=== PATIENT | male | born 1975 | race Asian ===

== ENCOUNTER 2016-10-01 12:14 | Emergency (ER) | payer OTHER ==
[2016-10-01 12:28] VITALS: BP 160/101; PULSE 100; TEMP 97.4; BMI 40.6
[2016-10-01] MEDS ORDERED: KETOROLAC TROMETHAMINE 60 MG/2 ML VIAL IM ONE (13:25)
[2016-10-01] MEDS ORDERED: traMADol HCL 50 MG TABLET PO ONE (13:25)
[2016-10-01] MEDS ORDERED: KETOROLAC TROMETHAMINE 60 MG/2 ML VIAL ONE (13:26)
[2016-10-01] MEDS ORDERED: traMADol HCL 50 MG TABLET ONE (13:27)
--- NOTE | 2016-10-01 13:31 | PDOC ---
History of Present Illness - General Chief Complaint: Back Pain Stated Complaint: BACK PAIN Time Seen by Provider: 10/01/16 12:49 History Source: Patient - History of Present Illness Occurred: reports: yesterday Severity: reports: severe Pain Location: reports: back Method of Injury: Yes: other (heavy lifting) Past History - Past Medical History Allergies/Adverse Reactions: Allergies Allergy/AdvReac Type Severity Reaction Status Date / Time No Known Allergies Allergy Verified 10/01/16 12:24 Home Medications: Ambulatory Orders Cyclobenzaprine HCl [Flexeril -] 10 mg PO HS #7 tablet 10/05/15 Cyclobenzaprine HCl [Flexeril -] 10 mg PO TID 10/05/15 Gabapentin 800 mg PO ASDIR 10/05/15 Ibuprofen 800 mg PO TID PRN #21 tablet 10/05/15 Metoprolol Succinate [Toprol Xl] 50 mg PO ASDIR 10/05/15 Tramadol HCl 50 mg PO Q6H #20 tablet MDD 200 mg 10/01/16 Diabetes: Yes - Psycho/Social/Smoking Cessation Hx Suicidal Ideation: No Smoking History: Never smoked Trauma Specific PMHX - Complaint Specific PMHX Arthritis: No Back Injury: No Neck Injury: No Hx Sacro Iliac Joint Dysfunction: No Review of Systems - Review of Systems Constitutional: No: Chills, Fever ABD/GI: No: Nausea, Vomiting, Abdominal cramping Musculoskeletal: Yes: Back Pain. No: Neck Pain Neurological: No: Numbness, Tingling, Weakness *Physical Exam - Vital Signs Last Vital Signs Temp Pulse Resp BP Pulse Ox 97.4 F L 100 H 19 160/101 95 10/01/16 12:24 10/01/16 12:24 10/01/16 12:24 10/01/16 12:24 10/01/16 12:24 - Physical Exam General Appearance: Yes: Appropriately Dressed, Moderate Distress HEENT: positive: Normal Voice Neck: positive: Supple Respiratory/Chest: negative: Respiratory Distress Gastrointestinal/Abdominal: positive: Soft. negative: Tender Musculoskeletal: positive: Vertebral Tenderness (to mid LS spine). negative: CVA Tenderness Integumentary: positive: Dry, Warm Neurologic: positive: Fully Oriented, Alert, Normal Mood/Affect Medical Decision Making - Medical Decision Making 10/01/16 13:26 41 yo male, obesity, DM, chronic LBP, f/u with a specialist w/ MRI in the past but does not remember results, take motrin as needed, p/w severe mid lower back pain that started yesterday after lifting a heavy box. States pain not improved w/ motrin. No radiation of pain, LE weakness, b/b incontinent or saddle anesthesia. See exam Acute on chronic LBP No red flags at this time. i./e cauda equina -pain control in ED and reassess 10/01/16 14:26 10/01/16 14:26 Pt reports sig improvement in pain. Will dc w/ rx and encourage pmd f/u *DC/Admit/Observation/Transfer Diagnosis at time of Disposition: Back pain Qualifiers: Back pain location: low back pain Chronicity: acute Back pain laterality: midline Sciatica presence: without sciatica Qualified Code(s): M54.5 - Low back pain - Discharge Dispostion Disposition: HOME Condition at time of disposition: Improved - Prescriptions Prescriptions: Tramadol HCl 50 mg PO Q6H #20 tablet MDD 200 mg - Patient Instructions Printed Discharge Instructions: Low Back Pain Additional Instructions: Take tramadol as needed for pain and follow up with your doctor
== END 2016-10-01 14:45 | disposition home or self-care (01) ==
LOC: JERFT 12:14
PROC: 3E0233Z Introduction of Anti-inflammatory into Muscle, Percutaneous Approach (ICD-10-PCS; principal; 2016-10-01)
DX: M54.5 Low back pain (principal); G89.29 Other chronic pain; E11.9 Type 2 diabetes mellitus without complications; E66.09 Other obesity due to excess calories; Z68.41 Body mass index [BMI] 40.0-44.9, adult
CPT/HCPCS: 99281-25

== ENCOUNTER 2017-07-27 09:34 | Day surgery (SDC) | payer OTHER ==
[2017-07-26 14:41] VITALS: BMI 41.9
[2017-07-27 10:59] VITALS: TEMP 97.5
[2017-07-27 14:45] VITALS: BP 135/84; PULSE 87
--- NOTE | 2017-07-29 15:44 | PATH ---
Surgical Pathology Report Patient Name: JANE QUINTANILLA [facility]. Rec. #: [id number] /Age/Gender: 1975 (Age: 42) / M Account: [id number] Location: [facility]-ENDOSCOPY Taken: 07/27/2017 Received: 07/27/2017 Reported: 07/29/2017 Physicians: Gio Jacques M.D. Specimen(s) Received BX ANTRUM Clinical History Abdominal pain Final Diagnosis ANTRUM, BIOPSY: MODERATE CHRONIC ACTIVE GASTRITIS. IMMUNOSTAIN SHOWS NUMEROUS H. PYLORI ORGANISMS. Electronically Signed Nell Brown M.D. Gross Description Received in formalin, labeled "biopsy antrum" are 2 dong, irregular portions of soft tissue measuring 0.3 and 0.6 cm. in greatest dimension. The specimens are submitted in toto in one cassette. /07/27/201707/27/2017
== END 2017-07-27 11:35 | disposition home or self-care (01) ==
LOC: JASU-ENDO 09:34
PROVIDERS: ATTEND Internal Medicine Gastroenterology
PROC: 0DB68ZX Excision of Stomach, Via Natural or Artificial Opening Endoscopic, Diagnostic (ICD-10-PCS; principal; 2017-07-27 11:00)
DX: K29.50 Unspecified chronic gastritis without bleeding (principal); K21.9 Gastro-esophageal reflux disease without esophagitis; I10 Essential (primary) hypertension; E11.9 Type 2 diabetes mellitus without complications; E66.9 Obesity, unspecified; Z68.41 Body mass index [BMI] 40.0-44.9, adult
CPT/HCPCS: 88305-TC; 88342-TC

== ENCOUNTER 2020-02-08 13:59 | Inpatient (IN) | payer OTHER ==
[2020-02-08] MEDS ORDERED: DEXAMETHASONE SOD PHOSPHATE 20 MG/5 ML VIAL IVPB STA (15:07)
[2020-02-08] MEDS ORDERED: LACTATED RINGERS SOLUTION 1000 ML INFUS.BAG IV STA (15:08)
[2020-02-08] MEDS ORDERED: DEXAMETHASONE SOD PHOSPHATE 10 MG/1 ML VIAL ONE (15:14)
[2020-02-08] MEDS ORDERED: LACTATED RINGERS SOLUTION 1,000 ML/1,000 ML INFUS.BAG IV SCH (15:15)
[2020-02-08 16:09] LABS: BASO % 0.3 % (0-2.0); EOS % 0.2 % (0-4.5); HEMATOCRIT 41.3 % (35.4-49); HEMOGLOBIN 13.8 GM/dL (11.7-16.9); LYMPH % 9.9 % (8-40); MCH 28.8 pg (25.7-33.7); MCHC 33.4 g/dl (32.0-35.9); MEAN CELL VOLUME 86.2 fl (80-96); MEAN PLT VOLUME 9.8 fl (7.5-11.1); MONO % 2.1 % (3.8-10.2); NEUT % 87.5 % (42.8-82.8); PLATELET COUNT 225 K/MM3 (134-434); RBC 4.79 M/mm3 (4.00-5.60); RDW 14.2 % (11.9-15.9)
[2020-02-08 16:22] LABS: CHLORIDE 106 mmol/L (98-107); SODIUM 138 mmol/L (136-145)
[2020-02-08 16:24] LABS: ALBUMIN 3.3 g/dl (3.4-5.0); ANION GAP 8 MMOL/L (8-16); BLOOD UREA NITROGEN 13.7 mg/dL (7-18); CALCIUM 8.4 mg/dL (8.5-10.1); CO2 24 mmol/L (21-32)
[2020-02-08 16:25] LABS: GLUCOSE,RANDOM 187 mg/dL (74-106)
[2020-02-08 16:27] LABS: SGOT/AST 42 U/L (15-37); SGPT/ALT 34 U/L (13-61)
[2020-02-08 16:29] LABS: BILIRUBIN,TOTAL 0.4 mg/dL (0.2-1); TOT PROT 6.5 g/dl (6.4-8.2)
[2020-02-08 16:30] LABS: ALK PHOS 71 U/L (45-117)
[2020-02-08 17:02] LABS: LDH 723 U/L (87-246)
[2020-02-08] MEDS ORDERED: ALBUTEROL SO4 HFA INHALER IH PRN (17:06)
[2020-02-08] MEDS ORDERED: CEFTRIAXONE 1 GM/50 ML BAG ONE (17:21)
[2020-02-08] MEDS: CEFTRIAXONE 1 GM in DEXTROSE 5%-WATER - 50 ML IVPB SCH (17:26)
[2020-02-08 18:31] LABS: URINE APPEARANCE CLEAR; URINE BILIRUBIN NEGATIVE (NEGATIVE); URINE COLOR YELLOW; URINE GLUCOSE (UA) NEGATIVE (NEGATIVE); URINE KETONE NEGATIVE (NEGATIVE); URINE LEUK ESTERASE NEGATIVE (NEGATIVE); URINE NITRITE NEGATIVE (NEGATIVE); URINE PROTEIN TRACE (NEGATIVE)
[2020-02-08 21:13] LABS: ARTERIAL BLD GAS O2 SATURATION 92.3 mmHg (95-98); ARTERIAL BLOOD GAS BASE EXCESS -0.2 mmol/L (-2-2); ARTERIAL BLOOD GAS PO2 62.4 mmHg (80-100); ARTERIAL BLOOD GAS pH 7.414 (7.350-7.450)
[2020-02-08 21:28] LABS: ALLENS TEST POSITIVE
[2020-02-08] MEDS ORDERED: methylPREDNISolone NA SUCC 40 MG/1 ML VIAL IVPUSH SCH (22:00)
[2020-02-08] MEDS ORDERED: ASCORBIC ACID 500 MG TABLET (FP) ONE (22:50)
[2020-02-08] MEDS: ASCORBIC ACID 500 MG TABLET (FP) PO SCH (22:55)
[2020-02-08] MEDS: INSULIN SLIDING SCALE (NOVOLOG) 1 VIAL SQ SCH (23:10)
[2020-02-09 07:14] LABS: POTASSIUM 4.1 mmol/L (3.5-5.1)
[2020-02-09 07:18] LABS: INR 1.26 (0.83-1.09); PROTHROMBIN TIME (PATIENT) 15.2 SEC (9.7-13.0)
[2020-02-09 07:18] LABS: BASO % 0.1 % (0-2.0); BLOOD UREA NITROGEN 17.2 mg/dL (7-18); CALCIUM 8.5 mg/dL (8.5-10.1); HEMATOCRIT 38.7 % (35.4-49); HEMOGLOBIN 13.2 GM/dL (11.7-16.9); MAGNESIUM 1.9 mg/dL (1.8-2.4); MCH 28.6 pg (25.7-33.7); MEAN CELL VOLUME 84.2 fl (80-96); MEAN PLT VOLUME 9.2 fl (7.5-11.1); MONO % 3.9 % (3.8-10.2); PLATELET COUNT 235 K/MM3 (134-434); RDW 14.4 % (11.9-15.9); WHITE BLOOD COUNT 10.7 K/mm3 (4.0-10.0)
[2020-02-09 07:21] LABS: ACTIVATED PTT 29.4 SECONDS (25.2-36.5)
[2020-02-09 07:21] LABS: CREATININE 0.9 mg/dL (0.55-1.3)
[2020-02-09 07:22] LABS: PHOSPHOROUS 3.6 mg/dL (2.5-4.9)
[2020-02-09 07:23] LABS: TOT PROT 6.3 g/dl (6.4-8.2)
[2020-02-09 07:25] LABS: BILIRUBIN,TOTAL 0.8 mg/dL (0.2-1)
[2020-02-09] MEDS: INSULIN SLIDING SCALE (NOVOLOG) 1 VIAL SQ SCH ×4 (08:28→23:06)
[2020-02-09] MEDS ORDERED: AZITHROMYCIN IVPB 250 MG in DEXTROSE 5%-WATER - 250 ML IVPB SCH (10:00)
[2020-02-09] MEDS ORDERED: ENOXAPARIN NA (PORCINE) 40 MG/0.4 ML DISP.SYRIN SQ SCH (10:00)
[2020-02-09] MEDS ORDERED: ASCORBIC ACID 500 MG TABLET (FP) ONE (10:11)
[2020-02-09] MEDS ORDERED: CEFTRIAXONE 1 GM/50 ML BAG ONE (10:11)
[2020-02-09] MEDS ORDERED: ZINC SULFATE 220 MG CAPSULE (FP) ONE (10:11)
[2020-02-09] MEDS ORDERED: ENOXAPARIN NA (PORCINE) 40 MG/0.4 ML DISP.SYRIN SQ ONE (10:11)
[2020-02-09] MEDS ORDERED: DEXAMETHASONE SOD PHOSPHATE 10 MG/1 ML VIAL ONE (10:11)
[2020-02-09] MEDS: DEXAMETHASONE SOD PHOSPHATE 10 MG/1 ML VIAL IVPB SCH (10:48)
[2020-02-09] MEDS: CEFTRIAXONE 1 GM in DEXTROSE 5%-WATER - 50 ML IVPB SCH (10:49)
[2020-02-09] MEDS: ZINC SULFATE 220 MG CAPSULE (FP) PO SCH (10:49)
[2020-02-09] MEDS: ASCORBIC ACID 500 MG TABLET (FP) PO SCH ×2 (10:49→23:07)
[2020-02-09] MEDS ORDERED: MUPIROCIN 2% TOPICAL OINTMENT FOR DECOLONIZATION NS SCH (11:15)
[2020-02-09] MEDS ORDERED: CEFEPIME 1 GM in DEXTROSE 5%-WATER 100 ML IVPB SCH (12:45)
[2020-02-09] MEDS ORDERED: LISINOPRIL 5 MG TABLET ONE (12:56)
[2020-02-09] MEDS: LISINOPRIL 5 MG TABLET PO SCH (13:27)
[2020-02-09] MEDS ORDERED: CEFEPIME HCL 1 GM VIAL (RESTRICTED TO ID) ONE (17:48)
[2020-02-09] MEDS ORDERED: DEXTROSE 5%-WATER 100 ML IVPB ONE (17:48)
[2020-02-09] MEDS: CEFEPIME 1 GM in DEXTROSE 5%-WATER 100 ML IVPB SCH (18:06)
[2020-02-09] MEDS ORDERED: PT OWN MED DRAWER 7, Y5N ONE (18:36)
[2020-02-09] MEDS ORDERED: REMDESIVIR 200 MG in SODIUM CHLORIDE 210 ML IVPB ONE (20:00)
[2020-02-09] MEDS ORDERED: CHLORHEXIDINE GLUCONATE 4% CLEANSER FOR DECOLONIZATION TP SCH (22:00)
[2020-02-09] MEDS: MUPIROCIN 2% TOPICAL OINTMENT FOR DECOLONIZATION NS SCH (23:04)
[2020-02-09] MEDS: CHLORHEXIDINE GLUCONATE 4% CLEANSER FOR DECOLONIZATION TP SCH (23:05)
[2020-02-09] MEDS: ENOXAPARIN NA (PORCINE) 120 MG/0.8 ML DISP.SYRIN SQ SCH (23:05)
[2020-02-09] MEDS: FAMOTIDINE 20 MG TABLET PO SCH (23:07)
[2020-02-10] MEDS: CEFEPIME 1 GM in DEXTROSE 5%-WATER 100 ML IVPB SCH ×3 (02:00→17:50)
[2020-02-10] MEDS ORDERED: DEXTROSE 5%-WATER 100 ML IVPB ONE ×3 (02:06→17:20)
[2020-02-10] MEDS ORDERED: CEFEPIME HCL 1 GM VIAL (RESTRICTED TO ID) ONE ×3 (02:06→17:20)
[2020-02-10] MEDS: INSULIN SLIDING SCALE (NOVOLOG) 1 VIAL SQ SCH ×4 (06:37→22:00)
[2020-02-10 07:07] LABS: POTASSIUM 4.1 mmol/L (3.5-5.1)
[2020-02-10 07:10] LABS: BASO % 0.2 % (0-2.0); HEMATOCRIT 38.5 % (35.4-49); LYMPH % 8.1 % (8-40); MCH 28.7 pg (25.7-33.7); MCHC 33.9 g/dl (32.0-35.9); MEAN CELL VOLUME 84.6 fl (80-96); MEAN PLT VOLUME 9.1 fl (7.5-11.1); NEUT % 85.7 % (42.8-82.8); PLATELET COUNT 289 K/MM3 (134-434); RBC 4.54 M/mm3 (4.00-5.60); RDW 14.4 % (11.9-15.9); WHITE BLOOD COUNT 15.1 K/mm3 (4.0-10.0)
[2020-02-10 07:11] LABS: CALCIUM 7.9 mg/dL (8.5-10.1)
[2020-02-10 07:12] LABS: ALBUMIN 2.8 g/dl (3.4-5.0); BLOOD UREA NITROGEN 23.8 mg/dL (7-18); MAGNESIUM 2.2 mg/dL (1.8-2.4)
[2020-02-10 07:15] LABS: CREATININE 0.9 mg/dL (0.55-1.3); PHOSPHOROUS 3.8 mg/dL (2.5-4.9)
[2020-02-10 07:16] LABS: BILIRUBIN,TOTAL 0.6 mg/dL (0.2-1); TOT PROT 6.2 g/dl (6.4-8.2)
[2020-02-10] MEDS: ENOXAPARIN NA (PORCINE) 120 MG/0.8 ML DISP.SYRIN SQ SCH ×2 (10:11→22:00)
[2020-02-10] MEDS: DEXAMETHASONE SOD PHOSPHATE 10 MG/1 ML VIAL IVPB SCH (10:11)
[2020-02-10] MEDS: ZINC SULFATE 220 MG CAPSULE (FP) PO SCH (10:12)
[2020-02-10] MEDS: ASCORBIC ACID 500 MG TABLET (FP) PO SCH ×2 (10:12→22:00)
[2020-02-10] MEDS: LISINOPRIL 5 MG TABLET PO SCH (10:13)
[2020-02-10] MEDS: FAMOTIDINE 20 MG TABLET PO SCH ×2 (10:13→22:00)
[2020-02-10] MEDS ORDERED: PT OWN MED DRAWER 7, Y5N ONE ×2 (10:45→19:54)
[2020-02-10] MEDS: MUPIROCIN 2% TOPICAL OINTMENT FOR DECOLONIZATION NS SCH ×2 (12:57→22:44)
[2020-02-10] MEDS: REMDESIVIR 100 MG in SODIUM CHLORIDE 230 ML IVPB SCH (20:22)
[2020-02-10] MEDS: CHLORHEXIDINE GLUCONATE 4% CLEANSER FOR DECOLONIZATION TP SCH (22:45)
[2020-02-11] VITALS: BMI 45.4
[2020-02-11] MEDS: CEFEPIME 1 GM in DEXTROSE 5%-WATER 100 ML IVPB SCH ×3 (02:00→18:20)
[2020-02-11] MEDS ORDERED: CEFEPIME HCL 1 GM VIAL (RESTRICTED TO ID) ONE ×3 (02:13→16:32)
[2020-02-11] MEDS ORDERED: DEXTROSE 5%-WATER 100 ML IVPB ONE ×3 (02:13→16:32)
[2020-02-11] MEDS: INSULIN SLIDING SCALE (NOVOLOG) 1 VIAL SQ SCH ×4 (07:04→22:30)
[2020-02-11 07:20] LABS: HEMATOCRIT 39.7 % (35.4-49); HEMOGLOBIN 13.3 GM/dL (11.7-16.9); LYMPH % 11.3 % (8-40); MCH 28.7 pg (25.7-33.7); MCHC 33.6 g/dl (32.0-35.9); MEAN CELL VOLUME 85.5 fl (80-96); MONO % 6.8 % (3.8-10.2); NEUT % 81.9 % (42.8-82.8); PLATELET COUNT 329 K/MM3 (134-434); RBC 4.65 M/mm3 (4.00-5.60); RDW 14.6 % (11.9-15.9)
[2020-02-11 07:59] LABS: POTASSIUM 4.2 mmol/L (3.5-5.1)
[2020-02-11 08:09] LABS: BILIRUBIN,TOTAL 0.4 mg/dL (0.2-1); TOT PROT 6.2 g/dl (6.4-8.2)
[2020-02-11 08:11] LABS: ALBUMIN 2.9 g/dl (3.4-5.0); BLOOD UREA NITROGEN 29.1 mg/dL (7-18); CALCIUM 7.9 mg/dL (8.5-10.1)
[2020-02-11 08:12] LABS: MAGNESIUM 2.5 mg/dL (1.8-2.4)
[2020-02-11 08:14] LABS: CREATININE 0.9 mg/dL (0.55-1.3); PHOSPHOROUS 3.3 mg/dL (2.5-4.9)
[2020-02-11] MEDS: ENOXAPARIN NA (PORCINE) 120 MG/0.8 ML DISP.SYRIN SQ SCH ×2 (10:13→22:30)
[2020-02-11 10:16] LABS: ANISOCYTOSIS 1+; MACROCYTOSIS 1+; PLATELET ESTIMATE NORMAL
[2020-02-11] MEDS: DEXAMETHASONE SOD PHOSPHATE 10 MG/1 ML VIAL IVPB SCH (10:19)
[2020-02-11] MEDS: MUPIROCIN 2% TOPICAL OINTMENT FOR DECOLONIZATION NS SCH ×2 (10:20→22:29)
[2020-02-11] MEDS: ZINC SULFATE 220 MG CAPSULE (FP) PO SCH (10:20)
[2020-02-11] MEDS: FAMOTIDINE 20 MG TABLET PO SCH ×2 (10:20→22:30)
[2020-02-11] MEDS: LISINOPRIL 5 MG TABLET PO SCH (10:20)
[2020-02-11] MEDS: ASCORBIC ACID 500 MG TABLET (FP) PO SCH ×2 (10:21→22:30)
[2020-02-11] MEDS: REMDESIVIR 100 MG in SODIUM CHLORIDE 230 ML IVPB SCH (20:00)
[2020-02-11] MEDS: CHLORHEXIDINE GLUCONATE 4% CLEANSER FOR DECOLONIZATION TP SCH (22:29)
[2020-02-12] MEDS ORDERED: DEXTROSE 5%-WATER 100 ML IVPB ONE ×3 (01:47→17:43)
[2020-02-12] MEDS ORDERED: CEFEPIME HCL 1 GM VIAL (RESTRICTED TO ID) ONE ×3 (01:47→17:43)
[2020-02-12] MEDS: CEFEPIME 1 GM in DEXTROSE 5%-WATER 100 ML IVPB SCH ×3 (02:00→17:44)
[2020-02-12] MEDS: INSULIN SLIDING SCALE (NOVOLOG) 1 VIAL SQ SCH ×4 (07:08→21:43)
[2020-02-12 07:38] LABS: BASO % 0.4 % (0-2.0); EOS % 0.3 % (0-4.5); HEMATOCRIT 40.6 % (35.4-49); HEMOGLOBIN 13.7 GM/dL (11.7-16.9); LYMPH % 12.8 % (8-40); MCH 28.7 pg (25.7-33.7); MCHC 33.7 g/dl (32.0-35.9); MEAN CELL VOLUME 85.1 fl (80-96); MONO % 4.1 % (3.8-10.2); NEUT % 82.4 % (42.8-82.8); PLATELET COUNT 343 K/MM3 (134-434); RBC 4.77 M/mm3 (4.00-5.60); RDW 14.1 % (11.9-15.9); WHITE BLOOD COUNT 15.9 K/mm3 (4.0-10.0)
[2020-02-12 08:06] LABS: CALCIUM 7.4 mg/dL (8.5-10.1)
[2020-02-12 08:07] LABS: ALBUMIN 2.6 g/dl (3.4-5.0); MAGNESIUM 2.4 mg/dL (1.8-2.4)
[2020-02-12 08:08] LABS: BLOOD UREA NITROGEN 24.6 mg/dL (7-18)
[2020-02-12 08:10] LABS: CREATININE 0.8 mg/dL (0.55-1.3)
[2020-02-12 08:12] LABS: BILIRUBIN,TOTAL 0.5 mg/dL (0.2-1)
[2020-02-12] MEDS: DEXAMETHASONE SOD PHOSPHATE 10 MG/1 ML VIAL IVPB SCH (09:19)
[2020-02-12] MEDS: ZINC SULFATE 220 MG CAPSULE (FP) PO SCH (09:20)
[2020-02-12] MEDS: FAMOTIDINE 20 MG TABLET PO SCH ×2 (09:21→21:42)
[2020-02-12] MEDS: ASCORBIC ACID 500 MG TABLET (FP) PO SCH ×2 (09:21→21:42)
[2020-02-12] MEDS: LISINOPRIL 5 MG TABLET PO SCH (09:21)
[2020-02-12] MEDS: ENOXAPARIN NA (PORCINE) 120 MG/0.8 ML DISP.SYRIN SQ SCH (09:22)
[2020-02-12 11:49] LABS: ANISOCYTOSIS 0; MACROCYTOSIS 0; PLATELET ESTIMATE NORMAL
[2020-02-12] MEDS ORDERED: guaiFENesin 200 MG/10 ML 10 ML UNIT-DOSE CUPS PO PRN (11:57)
[2020-02-12] MEDS: MUPIROCIN 2% TOPICAL OINTMENT FOR DECOLONIZATION NS SCH (12:00)
[2020-02-12] MEDS: guaiFENesin 200 MG/10 ML 10 ML UNIT-DOSE CUPS PO SCH ×2 (15:52→23:54)
[2020-02-12] MEDS ORDERED: ALBUTEROL SO4 HFA INHALER IH PRN (19:11)
[2020-02-12] MEDS: REMDESIVIR 100 MG in SODIUM CHLORIDE 230 ML IVPB SCH (19:55)
[2020-02-12] MEDS: ENOXAPARIN NA (PORCINE) 60 MG/0.6 ML DISP.SYRIN SQ SCH (21:46)
[2020-02-13] MEDS ORDERED: DEXTROSE 5%-WATER 100 ML IVPB ONE ×3 (00:54→16:47)
[2020-02-13] MEDS ORDERED: CEFEPIME HCL 1 GM VIAL (RESTRICTED TO ID) ONE ×3 (00:54→16:47)
[2020-02-13] MEDS: CEFEPIME 1 GM in DEXTROSE 5%-WATER 100 ML IVPB SCH ×3 (01:16→17:21)
[2020-02-13] MEDS: guaiFENesin 200 MG/10 ML 10 ML UNIT-DOSE CUPS PO SCH ×3 (05:53→17:22)
[2020-02-13] MEDS: INSULIN SLIDING SCALE (NOVOLOG) 1 VIAL SQ SCH ×4 (06:24→22:14)
[2020-02-13 07:38] LABS: EOS % 1.2 % (0-4.5); HEMATOCRIT 40.2 % (35.4-49); HEMOGLOBIN 13.5 GM/dL (11.7-16.9); LYMPH % 14.8 % (8-40); MCH 28.6 pg (25.7-33.7); MCHC 33.6 g/dl (32.0-35.9); MEAN CELL VOLUME 85.3 fl (80-96); MEAN PLT VOLUME 8.6 fl (7.5-11.1); PLATELET COUNT 333 K/MM3 (134-434); RBC 4.72 M/mm3 (4.00-5.60); RDW 14.3 % (11.9-15.9); WHITE BLOOD COUNT 15.8 K/mm3 (4.0-10.0)
[2020-02-13 07:49] LABS: POTASSIUM 3.9 mmol/L (3.5-5.1)
[2020-02-13 08:02] LABS: ALBUMIN 2.6 g/dl (3.4-5.0); BLOOD UREA NITROGEN 22.7 mg/dL (7-18); CALCIUM 7.8 mg/dL (8.5-10.1)
[2020-02-13 08:03] LABS: MAGNESIUM 2.2 mg/dL (1.8-2.4)
[2020-02-13 08:05] LABS: CREATININE 0.9 mg/dL (0.55-1.3)
[2020-02-13 08:06] LABS: BILIRUBIN,TOTAL 0.6 mg/dL (0.2-1); PHOSPHOROUS 2.6 mg/dL (2.5-4.9); TOT PROT 5.9 g/dl (6.4-8.2)
[2020-02-13] MEDS: DEXAMETHASONE SOD PHOSPHATE 10 MG/1 ML VIAL IVPB SCH (10:31)
[2020-02-13] MEDS: ZINC SULFATE 220 MG CAPSULE (FP) PO SCH (10:37)
[2020-02-13] MEDS: ASCORBIC ACID 500 MG TABLET (FP) PO SCH ×2 (10:38→22:12)
[2020-02-13] MEDS: LISINOPRIL 5 MG TABLET PO SCH (10:38)
[2020-02-13] MEDS: FAMOTIDINE 20 MG TABLET PO SCH ×2 (10:38→22:13)
[2020-02-13 10:42] LABS: ANISOCYTOSIS 0; MACROCYTOSIS 0; OVALOCYTE 1+; PLATELET ESTIMATE NORMAL
[2020-02-13] MEDS: ENOXAPARIN NA (PORCINE) 60 MG/0.6 ML DISP.SYRIN SQ SCH ×2 (10:42→22:15)
[2020-02-13] MEDS ORDERED: INSULIN (NOVOLOG) ASPART 100 UNITS/ML 10ML VIAL ONE (11:32)
[2020-02-13] MEDS: REMDESIVIR 100 MG in SODIUM CHLORIDE 230 ML IVPB SCH (20:58)
[2020-02-14] MEDS ORDERED: CEFEPIME HCL 1 GM VIAL (RESTRICTED TO ID) ONE ×2 (00:32→09:14)
[2020-02-14] MEDS ORDERED: DEXTROSE 5%-WATER 100 ML IVPB ONE ×2 (00:33→09:14)
[2020-02-14] MEDS: guaiFENesin 200 MG/10 ML 10 ML UNIT-DOSE CUPS PO SCH ×4 (00:51→18:02)
[2020-02-14] MEDS: CEFEPIME 1 GM in DEXTROSE 5%-WATER 100 ML IVPB SCH ×2 (01:09→09:37)
[2020-02-14] MEDS: INSULIN SLIDING SCALE (NOVOLOG) 1 VIAL SQ SCH ×4 (06:07→22:31)
[2020-02-14 07:26] LABS: HEMATOCRIT 40.4 % (35.4-49); HEMOGLOBIN 13.7 GM/dL (11.7-16.9); MCH 29.2 pg (25.7-33.7); MCHC 33.9 g/dl (32.0-35.9); MEAN CELL VOLUME 86.2 fl (80-96); MEAN PLT VOLUME 8.7 fl (7.5-11.1); PLATELET COUNT 314 K/MM3 (134-434); RBC 4.68 M/mm3 (4.00-5.60); RDW 14.2 % (11.9-15.9); WHITE BLOOD COUNT 16.6 K/mm3 (4.0-10.0)
[2020-02-14 07:39] LABS: POTASSIUM 3.9 mmol/L (3.5-5.1)
[2020-02-14 07:49] LABS: ALBUMIN 2.6 g/dl (3.4-5.0); CALCIUM 7.7 mg/dL (8.5-10.1)
[2020-02-14 07:50] LABS: BLOOD UREA NITROGEN 19.8 mg/dL (7-18); MAGNESIUM 2.2 mg/dL (1.8-2.4)
[2020-02-14 07:53] LABS: BILIRUBIN,TOTAL 0.6 mg/dL (0.2-1); CREATININE 0.7 mg/dL (0.55-1.3); PHOSPHOROUS 2.8 mg/dL (2.5-4.9)
[2020-02-14 07:54] LABS: TOT PROT 5.8 g/dl (6.4-8.2)
[2020-02-14] MEDS: ASCORBIC ACID 500 MG TABLET (FP) PO SCH ×2 (09:39→22:24)
[2020-02-14] MEDS: LISINOPRIL 5 MG TABLET PO SCH (09:40)
[2020-02-14] MEDS: DEXAMETHASONE SOD PHOSPHATE 10 MG/1 ML VIAL IVPB SCH (09:40)
[2020-02-14] MEDS: ZINC SULFATE 220 MG CAPSULE (FP) PO SCH (09:40)
[2020-02-14] MEDS: FAMOTIDINE 20 MG TABLET PO SCH ×2 (09:41→22:24)
[2020-02-14] MEDS: ENOXAPARIN NA (PORCINE) 60 MG/0.6 ML DISP.SYRIN SQ SCH ×2 (11:42→22:24)
[2020-02-15] MEDS: guaiFENesin 200 MG/10 ML 10 ML UNIT-DOSE CUPS PO SCH ×4 (06:37→18:10)
[2020-02-15] MEDS: INSULIN SLIDING SCALE (NOVOLOG) 1 VIAL SQ SCH ×4 (06:38→22:10)
[2020-02-15 07:12] LABS: HEMATOCRIT 40.4 % (35.4-49); HEMOGLOBIN 13.2 GM/dL (11.7-16.9); MCH 28.1 pg (25.7-33.7); MCHC 32.8 g/dl (32.0-35.9); MEAN CELL VOLUME 85.7 fl (80-96); MEAN PLT VOLUME 9.2 fl (7.5-11.1); PLATELET COUNT 336 K/MM3 (134-434); RBC 4.71 M/mm3 (4.00-5.60); RDW 14.1 % (11.9-15.9); WHITE BLOOD COUNT 16.1 K/mm3 (4.0-10.0)
[2020-02-15 07:36] LABS: POTASSIUM 4.4 mmol/L (3.5-5.1)
[2020-02-15 08:07] LABS: BLOOD UREA NITROGEN 22.5 mg/dL (7-18); CALCIUM 7.9 mg/dL (8.5-10.1)
[2020-02-15 08:08] LABS: MAGNESIUM 2.2 mg/dL (1.8-2.4)
[2020-02-15 08:10] LABS: CREATININE 0.7 mg/dL (0.55-1.3); PHOSPHOROUS 3.1 mg/dL (2.5-4.9)
[2020-02-15] MEDS: DEXAMETHASONE SOD PHOSPHATE 10 MG/1 ML VIAL IVPB SCH (10:04)
[2020-02-15] MEDS: LISINOPRIL 5 MG TABLET PO SCH (10:04)
[2020-02-15] MEDS: ASCORBIC ACID 500 MG TABLET (FP) PO SCH ×2 (10:04→22:10)
[2020-02-15] MEDS: ENOXAPARIN NA (PORCINE) 60 MG/0.6 ML DISP.SYRIN SQ SCH ×2 (10:04→22:09)
[2020-02-15] MEDS: ZINC SULFATE 220 MG CAPSULE (FP) PO SCH (10:04)
[2020-02-15] MEDS: FAMOTIDINE 20 MG TABLET PO SCH ×2 (10:05→22:10)
[2020-02-16] MEDS: guaiFENesin 200 MG/10 ML 10 ML UNIT-DOSE CUPS PO SCH ×4 (02:44→17:02)
[2020-02-16] MEDS: INSULIN SLIDING SCALE (NOVOLOG) 1 VIAL SQ SCH ×4 (07:00→22:55)
[2020-02-16 07:54] LABS: POTASSIUM 4.1 mmol/L (3.5-5.1)
[2020-02-16 07:59] LABS: BLOOD UREA NITROGEN 22.3 mg/dL (7-18); CALCIUM 8.4 mg/dL (8.5-10.1); MAGNESIUM 2.1 mg/dL (1.8-2.4)
[2020-02-16 08:01] LABS: HEMOGLOBIN 13.2 GM/dL (11.7-16.9); MCH 28.1 pg (25.7-33.7); MCHC 32.9 g/dl (32.0-35.9); MEAN CELL VOLUME 85.3 fl (80-96); MEAN PLT VOLUME 9.2 fl (7.5-11.1); PLATELET COUNT 319 K/MM3 (134-434); RBC 4.69 M/mm3 (4.00-5.60); RDW 14.3 % (11.9-15.9); WHITE BLOOD COUNT 16.6 K/mm3 (4.0-10.0)
[2020-02-16 08:02] LABS: CREATININE 0.7 mg/dL (0.55-1.3); PHOSPHOROUS 3.6 mg/dL (2.5-4.9)
[2020-02-16] MEDS: FAMOTIDINE 20 MG TABLET PO SCH ×2 (10:23→22:56)
[2020-02-16] MEDS: DEXAMETHASONE SOD PHOSPHATE 10 MG/1 ML VIAL IVPB SCH (10:23)
[2020-02-16] MEDS: ZINC SULFATE 220 MG CAPSULE (FP) PO SCH (10:23)
[2020-02-16] MEDS: ENOXAPARIN NA (PORCINE) 120 MG/0.8 ML DISP.SYRIN SQ SCH ×2 (10:24→22:55)
[2020-02-16] MEDS: LISINOPRIL 5 MG TABLET PO SCH (10:24)
[2020-02-16] MEDS: ASCORBIC ACID 500 MG TABLET (FP) PO SCH ×2 (10:24→22:56)
[2020-02-16] MEDS ORDERED: PT OWN MED DRAWER 7, Y5N ONE (10:37)
[2020-02-17] MEDS: guaiFENesin 200 MG/10 ML 10 ML UNIT-DOSE CUPS PO SCH ×3 (06:19→17:25)
[2020-02-17] MEDS: INSULIN SLIDING SCALE (NOVOLOG) 1 VIAL SQ SCH ×4 (06:19→23:27)
[2020-02-17 06:46] LABS: HEMATOCRIT 41.6 % (35.4-49); HEMOGLOBIN 13.6 GM/dL (11.7-16.9); MCH 28.2 pg (25.7-33.7); MCHC 32.7 g/dl (32.0-35.9); MEAN CELL VOLUME 86.3 fl (80-96); MEAN PLT VOLUME 9.1 fl (7.5-11.1); PLATELET COUNT 314 K/MM3 (134-434); RBC 4.83 M/mm3 (4.00-5.60); RDW 14.4 % (11.9-15.9); WHITE BLOOD COUNT 17.2 K/mm3 (4.0-10.0)
[2020-02-17 07:24] LABS: BLOOD UREA NITROGEN 23.1 mg/dL (7-18); CALCIUM 8.5 mg/dL (8.5-10.1)
[2020-02-17 07:26] LABS: PHOSPHOROUS 4.2 mg/dL (2.5-4.9)
[2020-02-17 07:28] LABS: CREATININE 0.8 mg/dL (0.55-1.3)
[2020-02-17] MEDS: ZINC SULFATE 220 MG CAPSULE (FP) PO SCH (09:24)
[2020-02-17] MEDS: ASCORBIC ACID 500 MG TABLET (FP) PO SCH ×2 (09:24→23:28)
[2020-02-17] MEDS: ENOXAPARIN NA (PORCINE) 120 MG/0.8 ML DISP.SYRIN SQ SCH ×2 (09:24→23:27)
[2020-02-17] MEDS: LISINOPRIL 5 MG TABLET PO SCH (09:24)
[2020-02-17] MEDS: FAMOTIDINE 20 MG TABLET PO SCH ×2 (09:24→23:28)
[2020-02-17] MEDS: DEXAMETHASONE SOD PHOSPHATE 10 MG/1 ML VIAL IVPB SCH (09:25)
[2020-02-18 07:20] LABS: HEMATOCRIT 39.9 % (35.4-49); HEMOGLOBIN 13.2 GM/dL (11.7-16.9); MCH 28.6 pg (25.7-33.7); MCHC 33.2 g/dl (32.0-35.9); MEAN CELL VOLUME 86.2 fl (80-96); PLATELET COUNT 273 K/MM3 (134-434); RBC 4.63 M/mm3 (4.00-5.60); RDW 13.8 % (11.9-15.9); WHITE BLOOD COUNT 15.9 K/mm3 (4.0-10.0)
[2020-02-18] MEDS: guaiFENesin 200 MG/10 ML 10 ML UNIT-DOSE CUPS PO SCH ×4 (07:43→23:25)
[2020-02-18] MEDS: INSULIN SLIDING SCALE (NOVOLOG) 1 VIAL SQ SCH ×4 (07:43→22:13)
[2020-02-18 07:48] LABS: POTASSIUM 4.3 mmol/L (3.5-5.1)
[2020-02-18 07:56] LABS: CALCIUM 8.1 mg/dL (8.5-10.1)
[2020-02-18 07:58] LABS: BLOOD UREA NITROGEN 25.1 mg/dL (7-18)
[2020-02-18 08:00] LABS: CREATININE 0.8 mg/dL (0.55-1.3)
[2020-02-18] MEDS ORDERED: PT OWN MED DRAWER 7, Y5N ONE (09:01)
[2020-02-18] MEDS: DEXAMETHASONE SOD PHOSPHATE 10 MG/1 ML VIAL IVPB SCH (09:09)
[2020-02-18] MEDS: ENOXAPARIN NA (PORCINE) 120 MG/0.8 ML DISP.SYRIN SQ SCH ×2 (09:09→22:12)
[2020-02-18] MEDS: LISINOPRIL 5 MG TABLET PO SCH (09:10)
[2020-02-18] MEDS: ASCORBIC ACID 500 MG TABLET (FP) PO SCH ×2 (09:10→22:14)
[2020-02-18] MEDS: ZINC SULFATE 220 MG CAPSULE (FP) PO SCH (09:10)
[2020-02-18] MEDS: FAMOTIDINE 20 MG TABLET PO SCH ×2 (10:13→22:14)
[2020-02-18] MEDS: MELATONIN 5 MG TABLETS PO PRN (22:28)
[2020-02-19] MEDS: INSULIN SLIDING SCALE (NOVOLOG) 1 VIAL SQ SCH ×4 (06:16→23:29)
[2020-02-19] MEDS: guaiFENesin 200 MG/10 ML 10 ML UNIT-DOSE CUPS PO SCH ×3 (06:16→23:30)
[2020-02-19 07:28] LABS: HEMOGLOBIN 12.7 GM/dL (11.7-16.9); MCH 28.1 pg (25.7-33.7); MCHC 32.5 g/dl (32.0-35.9); MEAN CELL VOLUME 86.5 fl (80-96); MEAN PLT VOLUME 9.3 fl (7.5-11.1); PLATELET COUNT 259 K/MM3 (134-434); RBC 4.51 M/mm3 (4.00-5.60); RDW 13.8 % (11.9-15.9); WHITE BLOOD COUNT 15.9 K/mm3 (4.0-10.0)
[2020-02-19 08:01] LABS: POTASSIUM 4.1 mmol/L (3.5-5.1)
[2020-02-19 08:10] LABS: CALCIUM 8.3 mg/dL (8.5-10.1)
[2020-02-19 08:11] LABS: MAGNESIUM 2.2 mg/dL (1.8-2.4)
[2020-02-19 08:14] LABS: CREATININE 0.9 mg/dL (0.55-1.3)
[2020-02-19] MEDS: DEXAMETHASONE SOD PHOSPHATE 10 MG/1 ML VIAL IVPB SCH (09:40)
[2020-02-19] MEDS: FAMOTIDINE 20 MG TABLET PO SCH ×2 (09:41→23:29)
[2020-02-19] MEDS: ZINC SULFATE 220 MG CAPSULE (FP) PO SCH (09:41)
[2020-02-19] MEDS: ASCORBIC ACID 500 MG TABLET (FP) PO SCH ×2 (09:41→23:29)
[2020-02-19] MEDS: LISINOPRIL 5 MG TABLET PO SCH (09:41)
[2020-02-19] MEDS: ENOXAPARIN NA (PORCINE) 120 MG/0.8 ML DISP.SYRIN SQ SCH ×2 (09:43→23:30)
[2020-02-19] MEDS ORDERED: PT OWN MED DRAWER 7, Y5N ONE ×3 (10:03→21:42)
[2020-02-19] MEDS: MELATONIN 5 MG TABLETS PO PRN (23:29)
[2020-02-20] MEDS: guaiFENesin 200 MG/10 ML 10 ML UNIT-DOSE CUPS PO SCH ×3 (06:31→23:48)
[2020-02-20] MEDS: INSULIN SLIDING SCALE (NOVOLOG) 1 VIAL SQ SCH ×4 (06:39→23:00)
[2020-02-20 06:59] LABS: MCH 28.3 pg (25.7-33.7); MCHC 32.4 g/dl (32.0-35.9); MEAN CELL VOLUME 87.5 fl (80-96); MEAN PLT VOLUME 9.8 fl (7.5-11.1); PLATELET COUNT 225 K/MM3 (134-434); RBC 4.23 M/mm3 (4.00-5.60)
[2020-02-20 07:26] LABS: POTASSIUM 4.1 mmol/L (3.5-5.1)
[2020-02-20 07:35] LABS: CALCIUM 7.9 mg/dL (8.5-10.1)
[2020-02-20 07:36] LABS: BLOOD UREA NITROGEN 30.3 mg/dL (7-18)
[2020-02-20 07:39] LABS: PHOSPHOROUS 3.9 mg/dL (2.5-4.9)
[2020-02-20 07:40] LABS: CREATININE 0.9 mg/dL (0.55-1.3)
[2020-02-20] MEDS: ENOXAPARIN NA (PORCINE) 120 MG/0.8 ML DISP.SYRIN SQ SCH (10:04)
[2020-02-20] MEDS: DEXAMETHASONE SOD PHOSPHATE 10 MG/1 ML VIAL IVPB SCH (10:04)
[2020-02-20] MEDS: ZINC SULFATE 220 MG CAPSULE (FP) PO SCH (10:04)
[2020-02-20] MEDS: ASCORBIC ACID 500 MG TABLET (FP) PO SCH ×2 (10:04→23:00)
[2020-02-20] MEDS: FAMOTIDINE 20 MG TABLET PO SCH ×2 (10:06→23:00)
[2020-02-20] MEDS: LISINOPRIL 5 MG TABLET PO SCH (10:06)
[2020-02-20] MEDS: APIXABAN 5 MG TABLET PO SCH (23:00)
[2020-02-21] MEDS: INSULIN SLIDING SCALE (NOVOLOG) 1 VIAL SQ SCH ×3 (06:49→18:30)
[2020-02-21] MEDS: guaiFENesin 200 MG/10 ML 10 ML UNIT-DOSE CUPS PO SCH ×3 (06:49→18:43)
[2020-02-21 07:22] LABS: HEMATOCRIT 37.5 % (35.4-49); HEMOGLOBIN 12.5 GM/dL (11.7-16.9); MCH 29.3 pg (25.7-33.7); MCHC 33.4 g/dl (32.0-35.9); MEAN CELL VOLUME 87.9 fl (80-96); MEAN PLT VOLUME 10.3 fl (7.5-11.1); PLATELET COUNT 210 K/MM3 (134-434); RBC 4.27 M/mm3 (4.00-5.60); RDW 14.2 % (11.9-15.9); WHITE BLOOD COUNT 9.9 K/mm3 (4.0-10.0)
[2020-02-21 07:39] LABS: POTASSIUM 4.3 mmol/L (3.5-5.1)
[2020-02-21 07:46] LABS: CALCIUM 8.1 mg/dL (8.5-10.1)
[2020-02-21 07:47] LABS: CREATININE 0.8 mg/dL (0.55-1.3)
[2020-02-21] MEDS: DEXAMETHASONE SOD PHOSPHATE 10 MG/1 ML VIAL IVPB SCH (10:28)
[2020-02-21] MEDS: FAMOTIDINE 20 MG TABLET PO SCH (10:28)
[2020-02-21] MEDS: LISINOPRIL 5 MG TABLET PO SCH (10:28)
[2020-02-21] MEDS: ZINC SULFATE 220 MG CAPSULE (FP) PO SCH (10:28)
[2020-02-21] MEDS: APIXABAN 5 MG TABLET PO SCH (10:28)
[2020-02-21] MEDS: ASCORBIC ACID 500 MG TABLET (FP) PO SCH (10:28)
[2020-02-21 18:36] VITALS: BP 123/73; PULSE 85; TEMP 98.1
== END 2020-02-21 19:11 | DRG 137 ==
LOC: JER 13:59 → JERBED 17:47 → JICU 02-09 13:19 → J4W 02-12 17:32
PROVIDERS: ATTEND Internal Medicine
PROC: XW13325 Transfusion of Convalescent Plasma (Nonautologous) into Peripheral Vein, Percutaneous Approach, New Technology Group 5 (ICD-10-PCS; principal; 2020-02-10)
PROC: XW033E5 Introduction of Remdesivir Anti-infective into Peripheral Vein, Percutaneous Approach, New Technology Group 5 (ICD-10-PCS; 2020-02-10)
DX: U07.1 COVID-19 (principal); J96.01 Acute respiratory failure with hypoxia; I10 Essential (primary) hypertension; E66.01 Morbid (severe) obesity due to excess calories; E78.5 Hyperlipidemia, unspecified; E11.65 Type 2 diabetes mellitus with hyperglycemia; J12.89 Other viral pneumonia; Z68.42 Body mass index [BMI] 45.0-49.9, adult; D89.839 Cytokine release syndrome, grade unspecified
CPT/HCPCS: 36415; 36430; 36600; 71045-TC-FY; 80048; 80053; 81003; 82728; 82803; 82962; 83036; 83615; 83735; 84100; 84484; 85025; 85027; 85379; 85384; 85610; 85651; 85730; 86140; 86850; 86900; 86901; 87040; 87804; 87807; 87899; 93005; 93010; 99285-25; C9803; J1100; P9017; U0003